=== PATIENT | female | born 1955 | race Caucasian/White ===

== ENCOUNTER 2022-02-20 14:46 | Inpatient (IN) ==
[2022-02-20 17:16] LABS: Basophils % 0.2 % (0.0-0.8); Eosinophils % 0.2 % (0.00-10.9); Hematocrit 38.8 VOL% (35.7-47.0); Hemoglobin 12.9 GM/DL (12.0-16.0); Immature Granulocytes % 0.5 %; Immature Granulocytes Absolute 0.05 #; Lymphocytes # 2.1 10*3/uL (1.4-4.0); Lymphocytes % 21.1 % (21.3-54.2); Mean Corpuscular HGB Conc 33.2 GM/DL (32-36); Mean Corpuscular Volume 91.7 FL (87-102); Monocytes # 0.4 10*3/uL (0.11-0.8); Monocytes % 4.4 % (1.7-12.7); Neutrophils % 73.6 % (38.7-73.9); Platelet Count 392 T/CUMM (130-400); Red Blood Count 4.23 MC/CUMM (3.8-5.5); Red Cell Distribution Width 12.9 % (9.3-17.3); White Blood Count 9.9 T/CUMM (4-12)
[2022-02-20] MEDS ORDERED: SODIUM CHLORIDE 0.9% 1,000 ML IV STA (17:27)
[2022-02-20] MEDS ORDERED: methylPREDNISolone SOD SUC 125 MG/2 ML VIAL IV STA (17:27)
[2022-02-20] MEDS ORDERED: ALBUTEROL/IPRATROPIUM 3 ML NEB RESP TX STA (17:27)
[2022-02-20] MEDS ORDERED: ONDANSETRON 4 MG/2 ML VIAL IV PRN (18:40)
[2022-02-20] MEDS ORDERED: ACETAMINOPHEN 325 MG TABLET PO PRN (18:40)
[2022-02-20] MEDS ORDERED: ALBUTEROL/IPRATROPIUM 3 ML NEB RESP TX PRN (18:40)
[2022-02-20 18:51] LABS: Alanine Aminotransferase 48 U/L (13-56); Albumin 3.5 G/DL (3.4-5.0); Alkaline Phosphatase 98 U/L (45-117); Aspartate Amino Transferase 22 U/L (0-37); Bilirubin,Total < 0.39 MG/DL (0.20-1.00); Calcium 9.3 MG/DL (8.5-10.1); Carbon Dioxide 28 MMOL/L (21-32); Chloride 104 MMOL/L (98-107); Glucose 143 MG/DL (74-106); Potassium 4.5 MMOL/L (3.5-5.1); Sodium 137 MMOL/L (136-145); Total Protein 7.2 G/DL (6.4-8.2)
[2022-02-20 20:15] LABS: Blood Urea Nitrogen 22 MG/DL (7-18); Osmolality,Calculated 277.8 MOS/KG (273-304)
[2022-02-20] MEDS: SODIUM CHLORIDE 0.45% 1,000 ML IV SCH (20:30)
[2022-02-20] MEDS: AZITHROMYCIN INJ 500 MG in SODIUM CHLORIDE 0.9% 250 ML IV SCH (21:43)
[2022-02-20] MEDS: sulfaSALAzine 500 MG TABLET PO SCH (21:58)
[2022-02-21] MEDS: ALBUTEROL/IPRATROPIUM 3 ML NEB RESP TX SCH ×4 (01:42→20:11)
[2022-02-21] MEDS: methylPREDNISolone SOD SUC 40 MG/1 ML VIAL IV SCH ×3 (03:11→16:44)
[2022-02-21 05:48] LABS: Hematocrit 36.1 VOL% (35.7-47.0); Hemoglobin 11.9 GM/DL (12.0-16.0); Immature Granulocytes % 0.7 %; Immature Granulocytes Absolute 0.08 #; Lymphocytes # 1.1 10*3/uL (1.4-4.0); Lymphocytes % 9.4 % (21.3-54.2); Mean Corpuscular Volume 92.8 FL (87-102); Mean Platelet Volume 9.4 FL (9.6-12.0); Monocytes # 0.2 10*3/uL (0.11-0.8); Monocytes % 1.5 % (1.7-12.7); Neutrophils % 88.4 % (38.7-73.9); Platelet Count 373 T/CUMM (130-400); Red Blood Count 3.89 MC/CUMM (3.8-5.5); Red Cell Distribution Width 12.9 % (9.3-17.3); White Blood Count 11.6 T/CUMM (4-12)
[2022-02-21 06:15] LABS: Alanine Aminotransferase 41 U/L (13-56); Albumin 3.1 G/DL (3.4-5.0); Alkaline Phosphatase 75 U/L (45-117); Aspartate Amino Transferase 14 U/L (0-37); Bilirubin,Total < 0.39 MG/DL (0.20-1.00); Blood Urea Nitrogen 14 MG/DL (7-18); Calcium 8.4 MG/DL (8.5-10.1); Carbon Dioxide 28 MMOL/L (21-32); Chloride 107 MMOL/L (98-107); Glucose 136 MG/DL (74-106); Osmolality,Calculated 277.7 MOS/KG (273-304); Potassium 4.3 MMOL/L (3.5-5.1); Sodium 138 MMOL/L (136-145); Total Protein 6.9 G/DL (6.4-8.2)
[2022-02-21] MEDS: SODIUM CHLORIDE 0.45% 1,000 ML IV SCH ×2 (07:09→16:44)
[2022-02-21] MEDS: sulfaSALAzine 500 MG TABLET PO SCH ×2 (09:50→21:28)
[2022-02-21] MEDS: ROSUVASTATIN 10 MG TABLET PO SCH (09:51)
[2022-02-21] MEDS: PANTOPRAZOLE 40 MG VIAL IV SCH (09:52)
[2022-02-21] MEDS ORDERED: BISACODYL 10 MG SUPP RECTAL ONE (11:00)
[2022-02-21] MEDS ORDERED: MAGNESIUM CITRATE 300 ML BOTTLE PO SCH (11:00)
[2022-02-21] MEDS: LACTULOSE 20 GM/30 ML UDCUP PO SCH ×2 (13:26→21:29)
[2022-02-21] MEDS: ARFORMOTEROL 15 MCG/2 ML NEB RESP TX SCH (20:11)
[2022-02-21] MEDS: AZITHROMYCIN INJ 500 MG in SODIUM CHLORIDE 0.9% 250 ML IV SCH (21:31)
[2022-02-22] MEDS: ALBUTEROL/IPRATROPIUM 3 ML NEB RESP TX SCH ×4 (00:30→23:04)
[2022-02-22] MEDS: methylPREDNISolone SOD SUC 40 MG/1 ML VIAL IV SCH ×3 (00:55→17:22)
[2022-02-22] MEDS: LACTULOSE 20 GM/30 ML UDCUP PO SCH ×3 (05:48→21:33)
[2022-02-22] MEDS: SODIUM CHLORIDE 0.45% 1,000 ML IV SCH ×2 (05:49→12:01)
[2022-02-22 05:51] LABS: Basophils % 0.1 % (0.0-0.8); Hematocrit 35.9 VOL% (35.7-47.0); Hemoglobin 11.5 GM/DL (12.0-16.0); Immature Granulocytes % 0.9 %; Immature Granulocytes Absolute 0.14 #; Lymphocytes # 0.8 10*3/uL (1.4-4.0); Lymphocytes % 5.1 % (21.3-54.2); Mean Corpuscular Volume 95.5 FL (87-102); Mean Platelet Volume 9.4 FL (9.6-12.0); Monocytes # 0.5 10*3/uL (0.11-0.8); Monocytes % 3.3 % (1.7-12.7); Neutrophils % 90.6 % (38.7-73.9); Platelet Count 360 T/CUMM (130-400); Red Blood Count 3.76 MC/CUMM (3.8-5.5); Red Cell Distribution Width 13.2 % (9.3-17.3); White Blood Count 15.8 T/CUMM (4-12)
[2022-02-22 06:14] LABS: Calcium 8.5 MG/DL (8.5-10.1); Osmolality,Calculated 284.1 MOS/KG (273-304); Potassium 3.6 MMOL/L (3.5-5.1)
[2022-02-22 06:28] LABS: Lymphocytes 5 % (20-55); Platelet Estimate Adequate; Total Cells Counted 100
[2022-02-22] MEDS: ARFORMOTEROL 15 MCG/2 ML NEB RESP TX SCH ×2 (07:45→19:10)
[2022-02-22] MEDS: sulfaSALAzine 500 MG TABLET PO SCH ×2 (08:41→21:33)
[2022-02-22] MEDS: ROSUVASTATIN 10 MG TABLET PO SCH (08:41)
[2022-02-22] MEDS: PANTOPRAZOLE 40 MG VIAL IV SCH (08:42)
[2022-02-22] MEDS: ASPIRIN CHEW 81 MG TABLET PO SCH (12:21)
[2022-02-22] MEDS: MONTELUKAST 10 MG TABLET PO SCH (12:22)
[2022-02-22] MEDS: FLUTICASONE 50 MCG NASAL SPRAY 16 GM BOTTLE BOTH NARES SCH (12:54)
[2022-02-22] MEDS: AZITHROMYCIN INJ 500 MG in SODIUM CHLORIDE 0.9% 250 ML IV SCH (21:32)
[2022-02-22] MEDS: FAMOTIDINE 20 MG TABLET PO SCH (21:33)
[2022-02-23] MEDS: methylPREDNISolone SOD SUC 40 MG/1 ML VIAL IV SCH ×3 (00:16→17:32)
[2022-02-23] MEDS: LACTULOSE 20 GM/30 ML UDCUP PO SCH ×3 (05:00→21:29)
[2022-02-23 05:45] LABS: Basophils % 0.1 % (0.0-0.8); Hematocrit 37.1 VOL% (35.7-47.0); Hemoglobin 11.7 GM/DL (12.0-16.0); Immature Granulocytes % 1.2 %; Lymphocytes # 1.2 10*3/uL (1.4-4.0); Lymphocytes % 7.1 % (21.3-54.2); Mean Corpuscular HGB Conc 31.5 GM/DL (32-36); Mean Corpuscular Volume 96.4 FL (87-102); Mean Platelet Volume 9.4 FL (9.6-12.0); Monocytes # 0.6 10*3/uL (0.11-0.8); Monocytes % 3.7 % (1.7-12.7); Neutrophils % 87.9 % (38.7-73.9); Platelet Count 362 T/CUMM (130-400); Red Blood Count 3.85 MC/CUMM (3.8-5.5); Red Cell Distribution Width 13.4 % (9.3-17.3); White Blood Count 16.2 T/CUMM (4-12)
[2022-02-23 06:31] LABS: Calcium 8.9 MG/DL (8.5-10.1); Osmolality,Calculated 282.4 MOS/KG (273-304); Potassium 4.8 MMOL/L (3.5-5.1)
[2022-02-23] MEDS: ALBUTEROL/IPRATROPIUM 3 ML NEB RESP TX SCH ×3 (07:45→23:51)
[2022-02-23] MEDS: ARFORMOTEROL 15 MCG/2 ML NEB RESP TX SCH ×2 (07:45→19:37)
[2022-02-23] MEDS: ROSUVASTATIN 10 MG TABLET PO SCH (08:35)
[2022-02-23] MEDS: ASPIRIN CHEW 81 MG TABLET PO SCH (08:36)
[2022-02-23] MEDS: PANTOPRAZOLE 40 MG VIAL IV SCH (08:36)
[2022-02-23] MEDS: MONTELUKAST 10 MG TABLET PO SCH (08:36)
[2022-02-23] MEDS: FAMOTIDINE 20 MG TABLET PO SCH ×2 (08:36→21:30)
[2022-02-23] MEDS: sulfaSALAzine 500 MG TABLET PO SCH ×2 (08:37→21:29)
[2022-02-23] MEDS: FLUTICASONE 50 MCG NASAL SPRAY 16 GM BOTTLE BOTH NARES SCH (13:55)
[2022-02-23] MEDS: AZITHROMYCIN INJ 500 MG in SODIUM CHLORIDE 0.9% 250 ML IV SCH (21:31)
[2022-02-24] MEDS: methylPREDNISolone SOD SUC 40 MG/1 ML VIAL IV SCH ×3 (01:29→16:36)
[2022-02-24] MEDS: LACTULOSE 20 GM/30 ML UDCUP PO SCH ×3 (04:01→21:33)
[2022-02-24 06:01] LABS: Basophils % 0.1 % (0.0-0.8); Hematocrit 37.1 VOL% (35.7-47.0); Hemoglobin 12.1 GM/DL (12.0-16.0); Immature Granulocytes % 1.1 %; Immature Granulocytes Absolute 0.16 #; Lymphocytes # 1.1 10*3/uL (1.4-4.0); Lymphocytes % 7.8 % (21.3-54.2); Mean Corpuscular HGB Conc 32.6 GM/DL (32-36); Mean Corpuscular Volume 94.6 FL (87-102); Mean Platelet Volume 9.8 FL (9.6-12.0); Monocytes # 0.6 10*3/uL (0.11-0.8); Monocytes % 4.1 % (1.7-12.7); Neutrophils % 86.9 % (38.7-73.9); Platelet Count 337 T/CUMM (130-400); Red Blood Count 3.92 MC/CUMM (3.8-5.5); Red Cell Distribution Width 13.4 % (9.3-17.3); White Blood Count 14.3 T/CUMM (4-12)
[2022-02-24 06:27] LABS: Calcium 8.9 MG/DL (8.5-10.1); Osmolality,Calculated 281.4 MOS/KG (273-304); Potassium 3.5 MMOL/L (3.5-5.1)
[2022-02-24] MEDS: ALBUTEROL/IPRATROPIUM 3 ML NEB RESP TX SCH ×3 (07:18→22:30)
[2022-02-24] MEDS: ARFORMOTEROL 15 MCG/2 ML NEB RESP TX SCH ×2 (07:18→22:30)
[2022-02-24] MEDS: sulfaSALAzine 500 MG TABLET PO SCH ×2 (08:29→21:33)
[2022-02-24] MEDS: ASPIRIN CHEW 81 MG TABLET PO SCH (08:29)
[2022-02-24] MEDS: PANTOPRAZOLE 40 MG VIAL IV SCH (08:29)
[2022-02-24] MEDS: FAMOTIDINE 20 MG TABLET PO SCH ×2 (08:30→21:34)
[2022-02-24] MEDS: ROSUVASTATIN 10 MG TABLET PO SCH (08:30)
[2022-02-24] MEDS: MONTELUKAST 10 MG TABLET PO SCH (08:30)
[2022-02-24] MEDS: FLUTICASONE 50 MCG NASAL SPRAY 16 GM BOTTLE BOTH NARES SCH (09:43)
[2022-02-24] MEDS: ESTRADIOL 1 MG TABLET PO SCH (14:29)
[2022-02-24] MEDS: AZITHROMYCIN INJ 500 MG in SODIUM CHLORIDE 0.9% 250 ML IV SCH (21:34)
[2022-02-25] MEDS: methylPREDNISolone SOD SUC 40 MG/1 ML VIAL IV SCH ×3 (01:54→16:38)
[2022-02-25] MEDS: LACTULOSE 20 GM/30 ML UDCUP PO SCH ×3 (05:44→20:50)
[2022-02-25] MEDS: ALBUTEROL/IPRATROPIUM 3 ML NEB RESP TX SCH ×3 (07:01→22:30)
[2022-02-25] MEDS: ARFORMOTEROL 15 MCG/2 ML NEB RESP TX SCH ×2 (07:01→22:30)
[2022-02-25] MEDS: ROSUVASTATIN 10 MG TABLET PO SCH (08:29)
[2022-02-25] MEDS: FAMOTIDINE 20 MG TABLET PO SCH ×2 (08:29→20:01)
[2022-02-25] MEDS: ASPIRIN CHEW 81 MG TABLET PO SCH (08:29)
[2022-02-25] MEDS: sulfaSALAzine 500 MG TABLET PO SCH ×2 (08:29→20:01)
[2022-02-25] MEDS: ESTRADIOL 1 MG TABLET PO SCH (08:29)
[2022-02-25] MEDS: PANTOPRAZOLE 40 MG VIAL IV SCH (08:30)
[2022-02-25] MEDS: BISACODYL 10 MG SUPP RECTAL PRN (08:44)
[2022-02-25] MEDS: FLUTICASONE 50 MCG NASAL SPRAY 16 GM BOTTLE BOTH NARES SCH (09:10)
[2022-02-25] MEDS: MONTELUKAST 10 MG TABLET PO SCH (09:10)
[2022-02-26] MEDS: methylPREDNISolone SOD SUC 40 MG/1 ML VIAL IV SCH ×3 (00:08→17:01)
[2022-02-26] MEDS: LACTULOSE 20 GM/30 ML UDCUP PO SCH ×3 (04:06→21:58)
[2022-02-26] MEDS: ARFORMOTEROL 15 MCG/2 ML NEB RESP TX SCH ×2 (07:00→23:04)
[2022-02-26] MEDS: ALBUTEROL/IPRATROPIUM 3 ML NEB RESP TX SCH ×3 (07:00→23:04)
[2022-02-26] MEDS: BISACODYL 10 MG SUPP RECTAL PRN (08:59)
[2022-02-26] MEDS: FAMOTIDINE 20 MG TABLET PO SCH ×2 (08:59→20:19)
[2022-02-26] MEDS: ASPIRIN CHEW 81 MG TABLET PO SCH (08:59)
[2022-02-26] MEDS: ROSUVASTATIN 10 MG TABLET PO SCH (08:59)
[2022-02-26] MEDS: PANTOPRAZOLE 40 MG VIAL IV SCH (08:59)
[2022-02-26] MEDS: ESTRADIOL 1 MG TABLET PO SCH (08:59)
[2022-02-26] MEDS: FLUTICASONE 50 MCG NASAL SPRAY 16 GM BOTTLE BOTH NARES SCH (09:00)
[2022-02-26] MEDS: sulfaSALAzine 500 MG TABLET PO SCH ×2 (09:00→20:19)
[2022-02-26] MEDS: MONTELUKAST 10 MG TABLET PO SCH (09:00)
[2022-02-26] MEDS ORDERED: methylPREDNISolone SOD SUC 40 MG/1 ML VIAL IV SCH (22:02)
[2022-02-27] MEDS: methylPREDNISolone SOD SUC 40 MG/1 ML VIAL IV SCH ×3 (01:42→16:37)
[2022-02-27] MEDS: ARFORMOTEROL 15 MCG/2 ML NEB RESP TX SCH ×2 (07:20→15:30)
[2022-02-27] MEDS: ALBUTEROL/IPRATROPIUM 3 ML NEB RESP TX SCH ×2 (07:30→15:45)
[2022-02-27] MEDS: FAMOTIDINE 20 MG TABLET PO SCH ×2 (08:06→20:40)
[2022-02-27] MEDS: ASPIRIN CHEW 81 MG TABLET PO SCH (08:06)
[2022-02-27] MEDS: ESTRADIOL 1 MG TABLET PO SCH (08:06)
[2022-02-27] MEDS: ROSUVASTATIN 10 MG TABLET PO SCH (08:06)
[2022-02-27] MEDS: sulfaSALAzine 500 MG TABLET PO SCH ×2 (08:06→20:40)
[2022-02-27] MEDS: MONTELUKAST 10 MG TABLET PO SCH (08:06)
[2022-02-27] MEDS: PANTOPRAZOLE 40 MG VIAL IV SCH (08:07)
[2022-02-27] MEDS: FLUTICASONE 50 MCG NASAL SPRAY 16 GM BOTTLE BOTH NARES SCH (09:11)
[2022-02-27] MEDS ORDERED: BENZONATATE 100 MG CAPSULE PO PRN (14:13)
[2022-02-27] MEDS: LORATADINE 10 MG TABLET PO SCH (17:56)
[2022-02-28] MEDS: ALBUTEROL/IPRATROPIUM 3 ML NEB RESP TX SCH ×2 (00:53→07:13)
[2022-02-28] MEDS: methylPREDNISolone SOD SUC 40 MG/1 ML VIAL IV SCH ×2 (01:08→09:33)
[2022-02-28] MEDS: PANTOPRAZOLE 40 MG TABLET PO SCH ×2 (05:50→08:02)
[2022-02-28] MEDS: ARFORMOTEROL 15 MCG/2 ML NEB RESP TX SCH (07:13)
[2022-02-28] MEDS: sulfaSALAzine 500 MG TABLET PO SCH (08:01)
[2022-02-28] MEDS: ESTRADIOL 1 MG TABLET PO SCH (08:01)
[2022-02-28] MEDS: ASPIRIN CHEW 81 MG TABLET PO SCH (08:01)
[2022-02-28] MEDS: LORATADINE 10 MG TABLET PO SCH (08:02)
[2022-02-28] MEDS: FAMOTIDINE 20 MG TABLET PO SCH (08:02)
[2022-02-28] MEDS: MONTELUKAST 10 MG TABLET PO SCH (08:02)
[2022-02-28] MEDS: ROSUVASTATIN 10 MG TABLET PO SCH (08:02)
[2022-02-28 08:11] VITALS: BP 124/55
[2022-02-28] MEDS: FLUTICASONE 50 MCG NASAL SPRAY 16 GM BOTTLE BOTH NARES SCH (09:33)
== END 2022-02-28 09:55 | disposition home or self-care (01) | DRG 203 ==
LOC: N.ED 14:46 → N.EDINP 14:46 → N.5E 19:41
PROVIDERS: ADMIT Internal Medicine; ATTEND Internal Medicine